=== PATIENT | male | born 1990 | race African-American/Black ===

== ENCOUNTER 2017-07-31 11:28 | Emergency (ER) | payer SELFPAY ==
[2017-07-31] MEDS: ONDANSETRON 4MG/2ML VIAL (J2405) IV ×2 (12:02→12:50)
[2017-07-31] MEDS: NS 1,000 ML IV (12:02)
[2017-07-31] MEDS: KETOROLAC 30 MG/ML VIAL (J1885) IV (12:03)
[2017-07-31 12:19] LABS: BASO # 0.1 10^3/uL (0.0-0.2); BASO % 0.5 % (0.0-1.0); EOS # 0.1 10^3/uL (0.0-0.50); EOS % 0.5 % (0.0-3.0); HEMATOCRIT 47.3 % (42.0-52.0); HEMOGLOBIN 16.3 g/dl (14.0-18.0); IMMATURE GRANULOCYTE # 0.1 10^3/uL (0-0); IMMATURE GRANULOCYTE % 0.5 % (0-0); LYMPH # 2.5 10^3/uL (1.5-6.5); MEAN CORPUSCULAR HEMOGLOBIN 29.2 pg (27.0-33.0); MEAN CORPUSCULAR HGB CONC 34.5 g/dl (32.0-36.5); MEAN CORPUSCULAR VOLUME 84.6 fl (80.0-96.0); MONO # 0.9 10^3/uL (0.0-0.8); MONO % 6.8 % (0.0-5.0); NEUTROPHILS # 9.6 10^3/uL (1.8-7.7); NEUTROPHILS % 72.7 % (36.0-66.0); PLATELET COUNT, AUTOMATED 305 10^3/uL (150-450); RED BLOOD COUNT 5.59 10^6/uL (4.30-6.10); RED CELL DISTRIBUTION WIDTH 14.5 % (11.5-14.5); WHITE BLOOD COUNT 13.2 10^3/uL (4.0-10.0)
[2017-07-31] MEDS: METOCLOPRAMIDE INJ 10MG/2ML VIAL (J2765) IV (12:26)
[2017-07-31] MEDS: MORPHINE 4 MG/ML 1ML SYRINGE IV (12:50)
[2017-07-31 12:58] LABS: ALBUMIN 3.9 GM/DL (3.2-5.2); ALBUMIN/GLOBULIN RATIO 1.26 (1.00-1.93); ALKALINE PHOSPHATASE 100 U/L (45-117); ALT/SGPT 28 U/L (12-78); AMYLASE 234 U/L (25-115); ANION GAP 10 MEQ/L (8-16); AST/SGOT 17 U/L (7-37); BILIRUBIN,TOTAL 0.8 MG/DL (0.2-1.0); BLOOD UREA NITROGEN 12 MG/DL (7-18); CALCIUM LEVEL 8.7 MG/DL (8.5-10.1); CARBON DIOXIDE LEVEL 24 MEQ/L (21-32); CHLORIDE LEVEL 112 MEQ/L (98-107); CREATININE FOR GFR 0.97 MG/DL (0.70-1.30); GLOMERULAR FILTRATION RATE > 60.0 (>60); GLUCOSE, FASTING 113 MG/DL (70-105); LIPASE 198 U/L (73-393); POTASSIUM SERUM 3.8 MEQ/L (3.5-5.1); SODIUM LEVEL 146 MEQ/L (136-145)
[2017-07-31] MEDS: DICYCLOMINE 10 MG CAP PO (14:34)
[2017-07-31] MEDS: ONDANSETRON 4 MG ORAL DISINTEGRATING TAB (S0181) PO (14:34)
== END 2017-07-31 14:51 | disposition home or self-care (01) ==
LOC: M ED 11:28
DX: R10.10 Upper abdominal pain, unspecified (principal); R11.2 Nausea with vomiting, unspecified; K57.30 Diverticulosis of large intestine without perforation or abscess without bleeding
CPT/HCPCS: J2405

== ENCOUNTER 2021-05-21 20:11 | Emergency (ER) | payer MEDICAID, OTHER, SELFPAY ==
[~2021-05-21] VITALS: Ht 177.8 cm; Wt 113.6 kg
[~2021-05-21 20:11] MED LIST: ALBU17IN INH; BENT10CA PO; PERC5TAB12 PO; ZOFR4TAB14 PO
--- OUTSIDE RECORDS SUMMARY | 2021-05-21 20:15 | CCD ---
Author Author [facility] Organization [facility] Address Unknown Phone Unavailable Care Team Providers Care Garnett Fixer Name Role Phone HUMMEL, G EDWARD RPA Unavailable Unavailable HUMMEL, G EDWARD RPA Unavailable Unavailable HUMMEL, G EDWARD RPA Unavailable Unavailable HUMMEL, G EDWARD RPA Unavailable Unavailable HUMMEL, G EDWARD RPA Unavailable Unavailable HUMMEL, G EDWARD RPA Unavailable Unavailable HUMMEL, G EDWARD RPA Unavailable Unavailable HUMMEL, G EDWARD RPA Unavailable Unavailable HUMMEL, G EDWARD RPA Unavailable Unavailable HUMMEL, G EDWARD RPA Unavailable Unavailable HUMMEL, G EDWARD RPA Unavailable Unavailable HUMMEL, G EDWARD RPA Unavailable Unavailable HUMMEL, G EDWARD RPA Unavailable Unavailable HUMMEL, G EDWARD RPA Unavailable Unavailable HUMMEL, G EDWARD RPA Unavailable Unavailable HUMMEL, G EDWARD RPA Unavailable Unavailable HUMMEL, G EDWARD RPA Unavailable Unavailable HUMMEL, G EDWARD RPA Unavailable Unavailable HUMMEL, G EDWARD RPA Unavailable Unavailable HUMMEL, G EDWARD RPA Unavailable Unavailable HUMMEL, G EDWARD RPA Unavailable Unavailable HUMMEL, G EDWARD RPA Unavailable Unavailable HUMMEL, G EDWARD RPA Unavailable Unavailable HUMMEL, G EDWARD RPA Unavailable Unavailable HUMMEL, G EDWARD RPA Unavailable Unavailable HUMMEL, G EDWARD RPA Unavailable Unavailable HUMMEL, G EDWARD RPA Unavailable Unavailable HUMMEL, G EDWARD RPA Unavailable Unavailable HUMMEL, G EDWARD RPA Unavailable Unavailable HUMMEL, G EDWARD RPA Unavailable Unavailable HUMMEL, G EDWARD RPA Unavailable Unavailable HUMMEL, G EDWARD RPA Unavailable Unavailable HUMMEL, G EDWARD RPA Unavailable Unavailable HUMMEL, G EDWARD RPA Unavailable Unavailable HUMMEL, G EDWARD RPA Unavailable Unavailable Re-disclosure Warning The records that you are about to access may contain information from federally-assisted alcohol or drug abuse programs. If such information is present, then the following federally mandated warning applies: This information has been disclosed to you from records protected by federal confidentiality rules (42 CFR part 2). The federal rules prohibit you from making any further disclosure of this information unless further disclosure is expressly permitted by the written consent of the person to whom it pertains or as otherwise permitted by 42 CFR part 2. A general authorization for the release of medical or other information is NOT sufficient for this purpose. The Federal rules restrict any use of the information to criminally investigate or prosecute any alcohol or drug abuse patient.The records that you are about to access may contain highly sensitive health information, the redisclosure of which is protected by Article 27-F of the [facility] Public Health law. If you continue you may have access to information: Regarding HIV / AIDS; Provided by facilities licensed or operated by the [facility] Office of Mental Health; or Provided by the [facility] Office for People With Developmental Disabilities. If such information is present, then the following [facility] mandated warning applies: This information has been disclosed to you from confidential records which are protected by state law. State law prohibits you from making any further disclosure of this information without the specific written consent of the person to whom it pertains, or as otherwise permitted by law. Any unauthorized further disclosure in violation of state law may result in a fine or intermediate sentence or both. A general authorization for the release of medical or other information is NOT sufficient authorization for further disc losure. Family History Family Member Name Family Member Gender Family Member Status Date o f Status Description Data Source(s) Unknown Female Problem [facility] ([facility] Encounters Encounter Providers Location Date Indications Data Source(s ) Outpatient Attender: RAJESH HUMMEL RPA 02/17 08:46:26 PM EDT - 02/17/2021 10:03:41 PM EDT [facility] ([facility] ) Medications No Information Insurance Providers Payer name Policy type / Coverage type Policy ID Covered green party ID Covered green party's relationship to ford Policy [employer] [facility] [id number] Self [facility] [id number] Workers Comp I- FA [employer] Claim [id number] Employe e [id number] SELF PAY ONLY [id number] SP [id number] SELF PAY ONLY UNAVAILABLE SP UNAV AILABLE MEDICAID [id number] SP [id number] SELF PA[place] [id number] SP [id number] M O UNAVAILABLE UNAVAILA BLE MEDICAID [id number] SP [id number] [facility] O [id number] S [id number] Problems, Conditions, and Diagnoses No Information Surgeries/Procedures No Information Results No Information Social History No Information
[2021-05-22] MEDS ORDERED: NS 1,000 ML IV ONE (07:30)
--- OUTSIDE RECORDS SUMMARY | 2021-05-22 07:56 | CCD ---
Author Author [facility] Organization [facility] Address Unknown Phone Unavailable Care Team Providers Care Hoisting Engineer Pile Driving Name Role Phone HUMMEL, G EDWARD RPA [...] EDWARD RPA Unavailable Unavailable HUMMEL, G EDWARD LAUREN Unavailable Unavailable Re-disclosure Warning The records that [...] is protected by Article 27-F of the [facility] Public Health law. If you continue you may have access to information: Regarding HIV / AIDS; Provided by facilities licensed or operated by the [facility] Office of Mental Health; or Provided by the [facility] Office for People With Developmental Disabilities. If such information is present, then the following [facility] mandated warning applies: This information has [...] law may result in a fine or skilled nursing sentence or both. A general authorization for the release of medical or other information is NOT sufficient authorization for further disc losure. Family History Family Member Name Family Member Gender Family Member Status Date o f Status Description Data Source(s) Unknown Female Problem [facility] ([facility] Encounters Encounter Providers Location Date Indications Data Source(s ) Outpatient Attender: LALODIXON SHAHEED AGUILAR 02/17 08:46:26 PM EDT - 02/17/2021 10:03:41 PM EDT [facility] ([facility] ) Medications No Information Insurance Providers Payer name Policy type / Coverage type Policy ID Covered democrat ID Covered democrat's relationship to ford Policy [employer] Plan Information [facility] Commercial [id number] Self [facility] [id number] SP [id number] Workers Comp I- FA Work[employer] Health Claim [id number] Employe e [id number] SELF PAY ONLY [id number] SP [id number] SELF PAY ONLY UNAVAILABLE SP UNAV AILABLE MEDICAID [id number] SP [id number] SELF PAY [place]ABLE SP [place] [id number] SP [id number] M O UNAVAILABLE UNAVAILA BLE MEDICAID [id number] SP [id number] [facility] O [id number] S [id number] Problems, Conditions, and Diagnoses No Information Surgeries/Procedures No Information Results No Information Social History No Information
[2021-05-22 08:19] LABS: BASO % 0.4 % (0.0-1.0); EOS # 0.1 10^3/uL (0.0-0.5); EOS % 0.5 % (0.0-3.0); HEMOGLOBIN 15.6 g/dl (13.5-17.5); LYMPH # 2.3 10^3/uL (1.5-5.0); LYMPH % 22.2 % (24.0-44.0); MEAN CORPUSCULAR HEMOGLOBIN 29.4 pg (27.0-33.0); MEAN CORPUSCULAR HGB CONC 33.9 g/dl (32.0-36.5); MEAN CORPUSCULAR VOLUME 86.6 fl (80.0-96.0); MONO # 0.7 10^3/uL (0.0-0.8); MONO % 7.1 % (2.0-8.0); NEUTROPHILS # 7.2 10^3/uL (1.5-8.5); NEUTROPHILS % 69.5 % (36.0-66.0); PLATELET COUNT, AUTOMATED 318 10^3/uL (150-450); RED BLOOD COUNT 5.31 10^6/uL (4.30-6.10); WHITE BLOOD COUNT 10.4 10^3/uL (4.0-10.0)
[2021-05-22 08:58] LABS: ERYTHROCYTE SEDIMENTATION RATE 6 mm/hr (0-15)
[2021-05-22 09:44] VITALS: BP 132/70
--- NOTE | 2021-05-24 08:45 | REP ---
INDICATION: decr. sensation R side, upper and lower. COMPARISON: None. TECHNIQUE: CT brain performed in the axial plane. Coronal reconstruction images are performed. FINDINGS: The ventricles are normal in size and position.. There is no midline shift or mass effect. Terrell-white differentiation is well maintained. There is no acute intracranial hemorrhage or extra-axial fluid collection. Bone window examination is unremarkable. The visualized mastoid air cells are clear. A retention cyst or polyp is partially visualized on the most inferior images of the right maxillary sinus. IMPRESSION: No acute intracranial hemorrhage, infarct, or mass. A preliminary report was provided by [facility] at the time of the exam. <Electronically signed by Davon Terrell > 05/24/21 2244
== END 2021-05-22 09:46 | disposition home or self-care (01) ==
LOC: M ED 20:11
DX: R20.2 Paresthesia of skin (principal)